=== PATIENT | female | born 1960 | race African-American/Black ===

== ENCOUNTER → 2017-10-18 | Outpatient (CLI) | payer OTHER | LOC: CAT 09:53 | DX: M47.894 Other spondylosis, thoracic region (principal); J39.8 Other specified diseases of upper respiratory tract; K76.89 Other specified diseases of liver ==

== ENCOUNTER 2017-12-07 10:57 | Emergency (ER) | payer OTHER ==
[~2017-12-07] VITALS: Ht 165.1 cm; Wt 78.0 kg
--- NOTE | ~2017-12-07 | EKG ---
[address] [place] [address] ELECTROCARDIOGRAM REPORT Name: KHOA HALL Room #: [facility] Rosalie#: [id number] Admission: 12/07/17 Attend Phys: Discharge: 12/07/17 Date of : 58 Report #: [id number] THIS REPORT FOR: //name// [facility] ED Test Date: 2017-12-07 Test Time: 11:42:48 Pat Name: KHOA HALL Department: Room: Gender: F Director Of Placement: : 1960 Requested By: Luci Lagunas Order Number: [id number] MD: Derrell Cevallos Measurements Intervals [place] Rate: 54 P: 54 [place]: 141 QRS: 30 QRSD: 90 T: 48 QT: 478 QTc: 453 Interpretive Statements Sinus bradycardia Nonspecific T wave abnormality Prolonged QT interval No previous ECG available for comparison Electronically Signed On 12-08-2017 8:46:26 CDT by Derrell Cevallos [email or web address] <ELECTRONICALLY SIGNED> By: Derrell Cevallos MD, [facility] 12/08/17 0846 1142 1142 Derrell Cevallos MD, FACC /EPI
[2017-12-07 12:13] LABS: ANION GAP 13 mmol/L (7-16); BUN 19 mg/dL (7-18); CALCIUM 9.3 mg/dL (8.5-10.1); CHLORIDE 108 mmol/L (98-107); CO2 20 mmol/L (21-32); CREATININE 0.8 mg/dL (0.6-1.0); GLUCOSE 95 mg/dL (74-106); POTASSIUM 4.3 mmol/L (3.5-5.1)
[2017-12-07 12:14] LABS: SODIUM 141 mmol/L (136-145)
[2017-12-07 12:22] LABS: TROPONIN-I <0.06 ng/mL (<0.06)
[2017-12-07] MEDS ORDERED: VENTOLIN HFA 1818 GM INH (12:26)
[2017-12-07] MEDS ORDERED: OMEPRAZOLE40 MG PO (12:27)
[2017-12-07] MEDS ORDERED: ULTRACET TABLET1 TAB PO (12:27)
[2017-12-07] MEDS ORDERED: ALBUTEROL2.5 MG/31 INH (12:28)
[2017-12-07] MEDS ORDERED: PREDNISONE 20 M20 MG PO (13:47)
[2017-12-07] MEDS ORDERED: PROMETH-CODEIN 65 ML PO (13:47)
[2017-12-07] MEDS ORDERED: ZPAK PO (13:47)
[2017-12-07 13:56] VITALS: BP 137/88
== END 2017-12-07 13:56 | disposition home or self-care (01) ==
LOC: ER 10:57
PROVIDERS: Physician Assistant
DX: J44.1 Chronic obstructive pulmonary disease with (acute) exacerbation (principal); M72.2 Plantar fascial fibromatosis; Z71.6 Tobacco abuse counseling; F17.210 Nicotine dependence, cigarettes, uncomplicated

== ENCOUNTER 2019-02-12 16:29 | Emergency (ER) | payer OTHER ==
[~2019-02-12] VITALS: Ht 167.6 cm; Wt 97.5 kg
[~2019-02-12 16:29] MED LIST: ALBUTEROL2.5 MG/31 INH; OMEPRAZOLE40 MG PO; PREDNISONE 20 M20 MG PO; PROMETH-CODEIN 65 ML PO; PROMETHAZINE-D118 ML PO; TESSALON PERLE100 MG PO; ULTRACET TABLET1 TAB PO; VENTOLIN HFA 1818 GM INH; ZPAK PO
[2019-02-12] MEDS ORDERED: PREDNISONE 10 M10 MG PO (16:47)
[2019-02-12] MEDS ORDERED: LIORESAL 10 MG10 MG PO (16:48)
[2019-02-12] MEDS ORDERED: ULTRACET TABLET1 TAB PO (16:48)
[2019-02-12 18:04] VITALS: BP 148/94
== END 2019-02-12 18:04 | disposition home or self-care (01) ==
LOC: ER 16:29
DX: S09.90XA Unspecified injury of head, initial encounter (principal); M54.5 Low back pain; J44.9 Chronic obstructive pulmonary disease, unspecified; F31.9 Bipolar disorder, unspecified; F41.9 Anxiety disorder, unspecified; F17.210 Nicotine dependence, cigarettes, uncomplicated; Z88.2 Allergy status to sulfonamides; W01.190A Fall on same level from slipping, tripping and stumbling with subsequent striking against furniture, initial encounter; Y93.89 Activity, other specified; Y92.89 Other specified places as the place of occurrence of the external cause; Y99.8 Other external cause status

== ENCOUNTER 2019-07-08 08:48 | Emergency (ER) | payer OTHER ==
[~2019-07-08] VITALS: Ht 167.6 cm; Wt 95.3 kg
[~2019-07-08 08:48] MED LIST changes: +LIORESAL 10 MG10 MG PO; +PREDNISONE 10 M10 MG PO
[2019-07-08] MEDS ORDERED: PROMETH-CODEIN 65 ML PO (09:12)
[2019-07-08 09:29] VITALS: BP 147/84
== END 2019-07-08 09:35 | disposition home or self-care (01) ==
LOC: ER 08:48
DX: R05 Cough (principal); J44.9 Chronic obstructive pulmonary disease, unspecified; F17.210 Nicotine dependence, cigarettes, uncomplicated; F31.9 Bipolar disorder, unspecified; F41.9 Anxiety disorder, unspecified; Z88.2 Allergy status to sulfonamides

== ENCOUNTER 2019-08-09 22:58 | Emergency (ER) | payer OTHER ==
[~2019-08-09] VITALS: Ht 167.6 cm; Wt 89.4 kg
[2019-08-09 23:01] VITALS: BP 151/79
[2019-08-09] MEDS ORDERED: TRAMADOL 50 MG50 MG PO (23:07)
[2019-08-09] MEDS ORDERED: TRAZODONE HCL50 MG PO (23:08)
[2019-08-09] MEDS ORDERED: PAROXETINE HCL20 MG PO (23:08)
[2019-08-09] MEDS ORDERED: CYCLOBENZAPRINE10 MG PO (23:10)
[2019-08-10] MEDS ORDERED: PREDNISONE50 MG PO (00:13)
== END 2019-08-10 00:22 | disposition left against medical advice (07) ==
LOC: ER 22:58
DX: J44.9 Chronic obstructive pulmonary disease, unspecified (principal); F17.210 Nicotine dependence, cigarettes, uncomplicated; Z88.2 Allergy status to sulfonamides; Z79.899 Other long term (current) drug therapy

== ENCOUNTER 2019-11-05 22:28 | Emergency (ER) | payer OTHER ==
[~2019-11-05] VITALS: Ht 167.6 cm; Wt 84.8 kg
[~2019-11-05 22:28] MED LIST changes: +CYCLOBENZAPRINE10 MG PO; +PAROXETINE HCL20 MG PO; +PREDNISONE50 MG PO; +TRAMADOL 50 MG50 MG PO; +TRAZODONE HCL50 MG PO
[2019-11-06] MEDS ORDERED: PREDNISONE 20 M20 MG PO (00:16)
[2019-11-06] MEDS ORDERED: PROMETH-CODEIN 65 ML PO (00:16)
[2019-11-06 00:25] VITALS: BP 132/76
== END 2019-11-06 00:20 | disposition home or self-care (01) ==
LOC: ER 22:28
DX: J44.1 Chronic obstructive pulmonary disease with (acute) exacerbation (principal); F17.210 Nicotine dependence, cigarettes, uncomplicated; Z79.899 Other long term (current) drug therapy; Z88.2 Allergy status to sulfonamides; Z20.828 Contact with and (suspected) exposure to other viral communicable diseases

== ENCOUNTER 2019-12-28 23:23 | Emergency (ER) | payer OTHER ==
[~2019-12-28] VITALS: Ht 157.5 cm; Wt 85.3 kg
--- NOTE | ~2019-12-28 | EKG ---
[facility] [place] [place] [address] ELECTROCARDIOGRAM REPORT Name: KHOA HALL Room #: DEP [facility]#: [id number] Admission: 12/28/19 Attend Phys: Discharge: 12/29/19 Date of : 58 Report #: [id number] THIS REPORT FOR: cc: Sylvia Harrison MD, Karla L. MD Epiphany, Epiphany MD ~ THIS REPORT FOR: //name// [facility] ED Test Date: 2019-12-29 Test Time: 00:25:45 Pat Name: KHOA HALL Department: Room: Gender: F Home Assessment Nurse: elisabeth : 1960 Requested By: Rosendo Castañeda Order Number: [id number] MD: Measurements Intervals [place] Rate: 64 P: 58 [place]: 147 QRS: 26 QRSD: 84 T: 70 QT: 346 QTc: 357 Interpretive Statements Sinus rhythm Nonspecific T abnormalities, lateral leads Compared to ECG 01/21/2018 12:30:53 T-wave abnormality now present ST (T wave) deviation no longer present [email or web address] By: 0025 0025 Epiphany Epiphany, /EPI
[2019-12-29 00:34] LABS: ABSOLUTE NEUTROPHILS 1.8 thou/uL (1.4-8.2); BASOPHILS 0.9 % (0.0-2.0); EOSINOPHILS 2.6 % (0.0-3.0); HEMATOCRIT 38.5 % (37.0-47.0); HEMOGLOBIN 12.9 gm/dL (12.0-15.0); LYMPHOCYTES 46.1 % (24.0-44.0); MCH 33.2 pg (26.0-34.0); MCHC 33.5 g/dL (28.0-37.0); MCV 99.1 fL (80.0-100.0); MONOCYTES 6.9 % (1.0-8.0); PLATELET COUNT 203 thou/uL (150-400); POLYS 43.5 % (36.0-66.0); RBC 3.89 mil/uL (4.20-5.00); RDW 14.8 % (10.5-14.5); WBC 4.3 thou/uL (4.0-11.0)
[2019-12-29 00:42] LABS: ANION GAP 12 mmol/L (7-16); BUN 12 mg/dL (7-18); CALCIUM 8.6 mg/dL (8.5-10.1); CHLORIDE 105 mmol/L (98-107); CO2 24 mmol/L (21-32); GLUCOSE 86 mg/dL (74-106); POTASSIUM 3.4 mmol/L (3.5-5.1); SODIUM 141 mmol/L (136-145)
[2019-12-29 00:50] LABS: TROPONIN-I <0.06 ng/mL (<0.06)
[2019-12-29 01:13] VITALS: BP 104/66
--- NOTE | 2019-12-30 08:37 | EKG ---
[facility] [place] [address] [place] [address] ELECTROCARDIOGRAM REPORT Name: KHOA HALL Room #: DEP [facility]#: [id number] Admission: 12/28/19 Attend Phys: Discharge: 12/29/19 Date of : 58 Report #: [id number] THIS REPORT FOR: cc: Sylvia Harrison MD, Karla L. MD Lundgren,Derrell Machado MD [facility] THIS REPORT FOR: //name// 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 : 1960 Requested By: Rosendo Castañeda Order Number: [id number] MD: Derrell Cevallos Measurements Intervals [place] Rate: 64 P: 58 [place]: 147 QRS: 26 QRSD: 84 T: 70 QT: 346 QTc: 357 Interpretive Statements Sinus rhythm Nonspecific T abnormalities, lateral leads Compared to ECG 01/21/2018 12:30:53 T-wave abnormality now present Electronically Signed On 12-30-2019 8:37:39 CDT by Derrell Cevallos [email or web address] <ELECTRONICALLY SIGNED> By: Derrell Cevallos MD, FACC 12/30/19 0837 0025 0025 Derrell Cevallos MD, [facility] /EPI
== END 2019-12-29 01:14 | disposition left against medical advice (07) ==
LOC: ER 23:23
PROVIDERS: Emergency Medicine
DX: R05 Cough (principal); J44.9 Chronic obstructive pulmonary disease, unspecified; F17.210 Nicotine dependence, cigarettes, uncomplicated; Z76.5 Malingerer [conscious simulation]; Z79.899 Other long term (current) drug therapy; Z88.2 Allergy status to sulfonamides

== ENCOUNTER 2020-01-05 21:45 | Emergency (ER) | payer OTHER ==
[~2020-01-05] VITALS: Ht 167.6 cm; Wt 84.8 kg
[2020-01-05 22:48] LABS: ABSOLUTE NEUTROPHILS 2.6 thou/uL (1.4-8.2); BASOPHILS 0.9 % (0.0-2.0); HEMATOCRIT 41.8 % (37.0-47.0); HEMOGLOBIN 13.8 gm/dL (12.0-15.0); LYMPHOCYTES 45.1 % (24.0-44.0); MCH 32.6 pg (26.0-34.0); MCHC 33.1 g/dL (28.0-37.0); MCV 98.5 fL (80.0-100.0); PLATELET COUNT 216 thou/uL (150-400); RBC 4.24 mil/uL (4.20-5.00); RDW 14.8 % (10.5-14.5); WBC 5.5 thou/uL (4.0-11.0)
[2020-01-05 22:49] LABS: ANION GAP 14 mmol/L (7-16); BUN 11 mg/dL (7-18); CALCIUM 9.2 mg/dL (8.5-10.1); CHLORIDE 105 mmol/L (98-107); CO2 21 mmol/L (21-32); CREATININE 0.9 mg/dL (0.6-1.0); GLUCOSE 75 mg/dL (74-106); SODIUM 140 mmol/L (136-145)
[2020-01-05 22:51] LABS: POTASSIUM 4.3 mmol/L (3.5-5.1)
[2020-01-05 22:59] LABS: ALBUMIN 3.6 g/dL (3.4-5.0); SGOT 24 U/L (15-37); SGPT 28 U/L (30-65); TOTAL BILIRUBIN 0.5 mg/dL (0.2-1.0); TOTAL PROTEIN 7.8 g/dL (6.4-8.2); TROPONIN-I <0.06 ng/mL (<0.06)
[2020-01-05] MEDS ORDERED: TESSALON PERLE100 MG PO (23:19)
[2020-01-05] MEDS ORDERED: PREDNISONE 20 M20 MG PO (23:19)
[2020-01-05] MEDS ORDERED: ALBUTEROL2.5 MG/31 INH (23:20)
[2020-01-05] MEDS ORDERED: GUAIFEN-CODEINE10 ML PO (23:53)
[2020-01-05 23:55] VITALS: BP 113/70
--- NOTE | 2020-01-07 16:01 | EKG ---
[facility] [place] [address] ELECTROCARDIOGRAM REPORT Name: ISABELKHOA Room #: DEP [facility]#: [id number] Admission: 01/05/20 Attend Phys: Discharge: 01/06/20 Date of : 58 Report #: [id number] THIS REPORT FOR: cc: Sylvia Harrison MD, Karla L. MD Couchonnal, Luis F. 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
== END 2020-01-06 | disposition home or self-care (01) ==
LOC: ER 21:45
PROVIDERS: Emergency Medicine
DX: J44.1 Chronic obstructive pulmonary disease with (acute) exacerbation (principal); Z20.828 Contact with and (suspected) exposure to other viral communicable diseases; F41.9 Anxiety disorder, unspecified; F17.210 Nicotine dependence, cigarettes, uncomplicated; Z79.899 Other long term (current) drug therapy; Z88.2 Allergy status to sulfonamides